=== PATIENT | female | born 1995 | race Caucasian/White ===

== ENCOUNTER → 2017-08-23 | Outpatient (REF) | payer OTHER ==
[~2017-08-23] MED LIST: ACET50TA PO; COLA100C5 PO; IBUP-1114 PO; MOM30SS PO; PRENTAB26 PO
== END ==
LOC: M SFHCLERA 11:28
PROVIDERS: ATTEND Nurse Practitioner Family
DX: R53.81 Other malaise (principal)

== ENCOUNTER 2017-11-04 20:40 | Emergency (ER) | payer OTHER ==
[2017-11-04 21:19] LABS: KETONE, URINE AUTO RFX NEGATIVE (NEGATIVE); LEUKOCYTE ESTERASE UR AUTO RFX 2+ (NEGATIVE); NITRITE, URINE AUTO RFX NEGATIVE (NEGATIVE); RBC, URINE AUTO RFX 3 /HPF (0-3); SPECIFIC GRAVITY UR AUTO RFX 1.005 (1.002-1.035); SQUAM EPITHELIAL CELL UR AURFX 5 /HPF (0-6); WBC, URINE AUTO RFX 13 /HPF (0-3)
[2017-11-04] MEDS: MORPHINE 2 MG/ML 1ML SYRINGE IV (21:45)
[2017-11-04] MEDS: ONDANSETRON 4MG/2ML VIAL (J2405) IV (21:45)
[2017-11-04 21:48] LABS: BASO % 0.8 % (0.0-1.0); EOS % 0.4 % (0.0-3.0); HEMATOCRIT 39.9 % (36.0-47.0); HEMOGLOBIN 13.6 g/dl (12.0-16.0); IMMATURE GRANULOCYTE % 0.2 % (0-0); LYMPH # 1.2 10^3/uL (1.5-6.5); LYMPH % 23.8 % (24.0-44.0); MEAN CORPUSCULAR HEMOGLOBIN 29.1 pg (27.0-33.0); MEAN CORPUSCULAR HGB CONC 34.1 g/dl (32.0-36.5); MEAN CORPUSCULAR VOLUME 85.4 fl (80.0-96.0); MONO # 0.4 10^3/uL (0.0-0.8); MONO % 7.2 % (0.0-5.0); NEUTROPHILS # 3.5 10^3/uL (1.8-7.7); NEUTROPHILS % 67.6 % (36.0-66.0); PLATELET COUNT, AUTOMATED 255 10^3/uL (150-450); RED BLOOD COUNT 4.67 10^6/uL (4.00-5.40); RED CELL DISTRIBUTION WIDTH 12.2 % (11.5-14.5); WHITE BLOOD COUNT 5.2 10^3/uL (4.0-10.0)
[2017-11-04 22:02] LABS: INR 1.05; PROTHROMBIN TIME 13.8 SECONDS (12.4-14.5)
[2017-11-04 22:14] LABS: CONTROL LINE HCG INT CTR LINE PRESENT; HCG, SERUM QUALITATIVE NEGATIVE (NEGATIVE)
[2017-11-04 22:25] LABS: ALBUMIN 4.3 GM/DL (3.2-5.2); ALBUMIN/GLOBULIN RATIO 1.23 (1.00-1.93); ALKALINE PHOSPHATASE 102 U/L (45-117); ALT/SGPT 21 U/L (12-78); ANION GAP 6 MEQ/L (8-16); AST/SGOT 24 U/L (7-37); BILIRUBIN,DIRECT 0.1 MG/DL (0.0-0.2); BILIRUBIN,TOTAL 0.5 MG/DL (0.2-1.0); BLOOD UREA NITROGEN 8 MG/DL (7-18); CALCIUM LEVEL 9.3 MG/DL (8.5-10.1); CARBON DIOXIDE LEVEL 26 MEQ/L (21-32); CHLORIDE LEVEL 106 MEQ/L (98-107); CREATININE FOR GFR 0.81 MG/DL (0.55-1.30); GLOMERULAR FILTRATION RATE > 60.0 (>60); GLUCOSE, FASTING 93 MG/DL (70-100); LIPASE 61 U/L (73-393); POTASSIUM SERUM 4.3 MEQ/L (3.5-5.1); SODIUM LEVEL 138 MEQ/L (136-145); TOTAL PROTEIN 7.8 GM/DL (6.4-8.2)
[2017-11-04] MEDS ORDERED: ISOVUE-370 76% 100ML VIAL (Q9967) As Ordered (22:43)
[2017-11-05 09:47] LABS: CHLAMYDIA DNA AMPLIFICATION NEGATIVE (NEGATIVE); GC DNA AMPLIFICATION NEGATIVE (NEGATIVE)
== END 2017-11-04 23:34 | disposition home or self-care (01) ==
LOC: M ED 20:40
DX: R10.9 Unspecified abdominal pain (principal); Z98.890 Other specified postprocedural states
CPT/HCPCS: J2405

== ENCOUNTER 2019-08-05 19:33 | Emergency (ER) | payer BC, OTHER ==
[~2019-08-05] VITALS: Ht 167.6 cm; Wt 79.1 kg
[~2019-08-05 19:33] MED LIST changes: -ACET50TA PO; +MAPA500T2 PO
[2019-08-05] MEDS ORDERED: LIDOCAINE 1% MDV 20ML VIAL IM ONE (21:15)
[2019-08-05] MEDS ORDERED: ADACEL/BOOSTRIX VACCINE (DIPHTH/PERTUSS/ACELL/TETANUS)0.5ML SYR (90715) IM ONE (21:15)
[2019-08-05] MEDS ORDERED: AUGM875T28 PO (21:21)
[2019-08-05 21:52] VITALS: BP 113/73
== END 2019-08-05 22:01 | disposition home or self-care (01) ==
LOC: M ED 19:33
DX: S01.511A Laceration without foreign body of lip, initial encounter (principal); W54.0XXA Bitten by dog, initial encounter; Y92.89 Other specified places as the place of occurrence of the external cause

== ENCOUNTER → 2020-04-26 | Outpatient (CLI) | payer BC ==
[~2020-04-26] MED LIST changes: +AUGM875T28 PO
[2020-06-04 12:21] LABS: CHOLESTEROL LEVEL 149 MG/DL (<200); CHOLESTEROL RISK RATIO 3.547 (<5); HDL CHOLESTEROL 42 MG/DL (>40); LDL CHOLESTEROL 80 MG/DL (<100); NON-HDL-C 107 MG/DL; TRIGLYCERIDES LEVEL 134 MG/DL (<150)
[2020-06-15 11:22] LABS: BASO % 0.7 % (0.0-1.0); EOS # 0.1 10^3/uL (0.0-0.5); HEMATOCRIT 40.4 % (36.0-47.0); LYMPH # 2.1 10^3/uL (1.5-5.0); LYMPH % 36.2 % (24.0-44.0); MEAN CORPUSCULAR HGB CONC 32.2 g/dl (32.0-36.5); MONO # 0.4 10^3/uL (0.0-0.8); MONO % 6.1 % (0.0-5.0); NEUTROPHILS # 3.2 10^3/uL (1.5-8.5); NEUTROPHILS % 55.8 % (36.0-66.0); PLATELET COUNT, AUTOMATED 343 10^3/uL (150-450); RED BLOOD COUNT 4.49 10^6/uL (4.00-5.40); WHITE BLOOD COUNT 5.8 10^3/uL (4.0-10.0)
== END ==
LOC: M LAB 07:27
PROVIDERS: ATTEND Family Medicine
DX: N91.1 Secondary amenorrhea (principal); E66.8 Other obesity; D50.9 Iron deficiency anemia, unspecified

== ENCOUNTER → 2020-06-19 | Outpatient (REF) | payer BC | LOC: M WUC 19:18 | PROVIDERS: ATTEND Physician Assistant | DX: J02.9 Acute pharyngitis, unspecified (principal) ==

== ENCOUNTER → 2020-11-22 | Outpatient (REF) | payer BC ==
[2020-11-22 14:05] LABS: HEMATOCRIT 33.8 % (36.0-47.0); HEMOGLOBIN 11.2 g/dl (12.0-15.5); MEAN CORPUSCULAR HEMOGLOBIN 29.4 pg (27.0-33.0); MEAN CORPUSCULAR HGB CONC 33.1 g/dl (32.0-36.5); MEAN CORPUSCULAR VOLUME 88.7 fl (80.0-96.0); PLATELET COUNT, AUTOMATED 321 10^3/uL (150-450); RED BLOOD COUNT 3.81 10^6/uL (4.00-5.40); WHITE BLOOD COUNT 6.1 10^3/uL (4.0-10.0)
[2020-11-22 14:51] LABS: HEPATITIS C VIRUS ABY INDEX < 0.0 INDEX (<0.8); HIV 1&2 SCREEN CENTAUR NEGATIVE (NEGATIVE)
== END ==
LOC: M PLALAB 08:54
PROVIDERS: ATTEND Advanced Practice Midwife
DX: Z3A.08 8 weeks gestation of pregnancy (principal)

== ENCOUNTER → 2020-12-20 | Outpatient (REF) | payer BC | LOC: M SFHCWAGY 13:21 | PROVIDERS: ATTEND Obstetrics & Gynecology | DX: Z34.91 Encounter for supervision of normal pregnancy, unspecified, first trimester (principal) ==

== ENCOUNTER → 2021-02-08 | Outpatient (CLI) | payer BC ==
--- NOTE | 2021-02-08 14:57 | REP ---
INDICATION: ANATOMY COMPARISON: None. TECHNIQUE: Transabdominal obstetrical ultrasound with color Doppler evaluation. FINDINGS: Examination demonstrates a single live intrauterine in cephalic presentation. motion is identified by technologist. Placenta is noted fundal and grade 0 without evidence for placenta previa or abruption. Amniotic fluid volume is normal. Cervix measures 3.7 cm in length and appears closed.. Gestational age by LMP 19 weeks 4 days with BLANKA 07/01/2021. Gestational age by current measurements 19 weeks 0 days with BLANKA 07/05/2021. FHR equals 142 beats per minute. Estimated weight 265 grams (16thpercentile). Anatomical assessment demonstrates normal structures including cranium, choroid plexus, cavum, cerebellum/posterior fossa, facial features, lungs, four-chamber heart/ventricular outflow tracts, diaphragm, stomach, cord insertion/three-vessel cord, kidneys/bladder, spine, and extremities. IMPRESSION: Single live intrauterine in cephalic presentation demonstrating appropriate estimated weight. Anatomical assessment is complete and normal. <Electronically signed by Billy Hernández > 02/08/21 [id number]
== END ==
LOC: M WHC 07:06
PROVIDERS: ATTEND Obstetrics & Gynecology
DX: Z36.89 Encounter for other specified antenatal screening (principal); Z3A.18 18 weeks gestation of pregnancy

== ENCOUNTER → 2021-04-18 | Outpatient (CLI) | payer BC ==
[2021-04-18 11:20] LABS: HEMATOCRIT 30.9 % (36.0-47.0); HEMOGLOBIN 10.3 g/dl (12.0-15.5); MEAN CORPUSCULAR HEMOGLOBIN 30.1 pg (27.0-33.0); MEAN CORPUSCULAR HGB CONC 33.3 g/dl (32.0-36.5); MEAN CORPUSCULAR VOLUME 90.4 fl (80.0-96.0); PLATELET COUNT, AUTOMATED 259 10^3/uL (150-450); RED BLOOD COUNT 3.42 10^6/uL (4.00-5.40); WHITE BLOOD COUNT 8.7 10^3/uL (4.0-10.0)
== END ==
LOC: M PLALAB 08:24
PROVIDERS: ATTEND Advanced Practice Midwife
DX: Z36.89 Encounter for other specified antenatal screening (principal); Z3A.24 24 weeks gestation of pregnancy

== ENCOUNTER 2021-05-30 15:50 | Outpatient (CLI) | payer BC ==
[~2021-05-30] VITALS: Ht 167.6 cm; Wt 84.9 kg
[2021-05-30 16:19] VITALS: BP 109/59
[2021-05-30] MEDS ORDERED: PRENTAB9 PO (17:16)
[2021-05-30] MEDS ORDERED: HOME MED LIST COMPLETE! XX SCH (17:20)
--- NOTE | 2021-05-30 17:52 | IPN ---
PROGRESS NOTE DATE: 05/30/2021 Pura is a 26-year-old 3, para 2-0-0-2 at 35-4/7 weeks gestation with an estimated date of confinement (EDC) of 06/30/2021 based on first-trimester ultrasound. She presents to labor and delivery today with a report that she dropped her water bottle at work, bent over, and had a large gush of fluid. She denies vaginal bleeding, painful contractions. The fetus has been active. [facility] was [facility] at [facility] in the first trimester. course was complicated by rubella equivocal and history of a hemorrhage. OBSTETRIC HISTORY: On , 40-week gestation, 7-pound 6-ounce male, vaginal delivery. She reports hemorrhage. #2, 03/08/2021, 37 weeks gestation, 6-pound 7-ounce female, vaginal, no complications. OBSTETRIC LABORATORY DATA: A positive, antibody screen negative, syphilis negative, gonorrhea and chlamydia negative, rubella equivocal. Hepatitis B negative, hepatitis C negative, HIV negative. Gestational diabetic screening normal at 93. Urine culture contaminated. GBS is unknown at this time. PAST MEDICAL HISTORY: Obesity. SURGERIES: 1. Corrective eye surgery. 2. [place] tooth extraction. FAMILY HISTORY: Hypertension. SOCIAL HISTORY: The patient is . Her is at bedside. She is a nonsmoker. She denies alcohol and drug use. No history of any sexual transmitted infections. She denies history of abuse, physical, sexual, and emotional. ALLERGIES: ZITHROMAX. CURRENT MEDICATIONS: vitamin. OBJECTIVE: Blood pressure 109/59. Alert and oriented times three. She does not appear uncomfortable. heart rate is 135 with moderate variability, positive accelerations, negative decelerations. There is an occasional contraction. Sterile speculum exam: Negative Valsalva. Negative pooling. Negative Nitrazine. Negative ferning. Sterile vaginal exam: Cervix is closed, 50% effaced, ballottable station. Her GBS culture and sensitivity was obtained. Bedside ultrasound reveals multiple pockets of fluid greater than 2.5 cm, approximately 8 cm of amniotic fluid. ASSESSMENT: Intrauterine at 35-4/7 weeks. heart rate category 1. Not ruptured, not in labor. PLAN: Discharge the patient home. She should keep her appointment that is scheduled tomorrow. I did review signs and symptoms of active labor, movement counts, and danger signs to report. I reviewed access to care. The patient and her have had their questions answered and are agreeable to discharge.
== END 2021-05-30 17:15 | disposition home or self-care (01) ==
LOC: M LDO 15:50
PROVIDERS: ATTEND Advanced Practice Midwife
DX: O26.893 Other specified pregnancy related conditions, third trimester (principal); N89.8 Other specified noninflammatory disorders of vagina; Z3A.35 35 weeks gestation of pregnancy; Z87.59 Personal history of other complications of pregnancy, childbirth and the puerperium

== ENCOUNTER 2021-06-04 18:19 | Outpatient (CLI) | payer BC ==
[~2021-06-04] VITALS: Ht 167.6 cm; Wt 83.2 kg
[~2021-06-04 18:19] MED LIST changes: +PRENTAB9 PO
[2021-06-04 18:35] VITALS: BP 121/67
[2021-06-04 19:54] VITALS: BP 133/79
[2021-06-04 21:19] VITALS: BP 119/75
[2021-06-04] MEDS ORDERED: LR 1,000 ML IV ONE (21:20)
[2021-06-04] MEDS ORDERED: BUTORPHANOL 2 MG/ML INJ (J0595) IV ONE (22:00)
[2021-06-04] MEDS ORDERED: PROMETHAZINE INJ 25 MG/ML VIAL (J2550) IV ONE (22:00)
[2021-06-04 22:12] VITALS: BP 110/55
[2021-06-04 22:41] VITALS: BP 103/55
[2021-06-04 23:37] VITALS: BP 96/58
--- NOTE | 2021-06-04 23:51 | IPNPDOC ---
Text Note Date of Service The patient was seen on 06/04/21. NOTE Subjective: Pura is a 26-year-old 3, para 2-0-0-2 at 36-2/7 weeks gestation with an estimated date of confinement (EDC) of 06/30/2021 based on first-trimester ultrasound. She presents to labor and delivery today with a report of painful contractions that are 8 minutes apart since noon. She reports they have gotten worse even after getting into the shower. [facility] was initiated at [facility] in the first trimester. course was complicated by rubella equivocal and history of a hemorrhage. She reports active movement. She denies leaking of fluid or vaginal bleeding. OBSTETRIC HISTORY: -: 40-week gestation, 7-pound 6-ounce male, vaginal delivery. She reports hemorrhage. -03/08/2016: 37 weeks gestation, 6-pound 7-ounce female, vaginal, no complications. OBSTETRIC LABORATORY DATA: A positive, GBS negative PAST MEDICAL HISTORY: Obesity. SURGERIES: 1. Corrective eye surgery. 2. [place] tooth extraction. FAMILY HISTORY: Hypertension. SOCIAL HISTORY: The patient is . Her is at bedside. She is a nonsmoker. She denies alcohol and drug use. No history of any sexual transmitted infections. She denies history of abuse, physical, sexual, or emotional. ALLERGIES: ZITHROMAX. CURRENT MEDICATIONS: vitamin. Objective: VS and labs: see below. FHR: 130, moderate variability, positive accelerations, no decelerations. [place]: Contractions every 2 to 4 minutes initially and after Stadol and Phenergan they are irregular and spaced. General: alert and oriented. Does appear to be uncomfortable at times as noted by grimacing. Respiratory: Regular rate and rhythm. Abdomen: soft and not tender with palpation SVE: 1/thick, anterior, soft, no show. No change in cervix after multiple hours. SSE done because there was a large puddle of fluid under patient right before she got up to bathroom. She thinks she urinated. SSE: cervix posterior, white thin discharge. No pooling of fluid. Nitrazine negative. Fern negative. Assessment: IUP at 36.2, contractions, not in active labor Plan: Patient given Stadol and Phenergan to help with discomfort. Contractions spaced and patient and feel comfortable returning home. Discharged to home. Appointment in office scheduled in 2 days. Encouraged to go to visit. Discharged to home with precautions with her . VS,Fishbone, I+O VS, Fishbone, I+O Vital Signs Date Time Temp Pulse Resp B/P (MAP) Pulse Ox O2 Delivery O2 Flow Rate FiO2 06/04/21 23:38 97.8 18 06/04/21 23:37 82 96/58 (71) Item Value Date Time Urine Color YELLOW 06/04/211952 Urine Appearance CLEAR 06/04/211952 Urine Specific [place] 1.014 06/04/211952 Urine Protein NEGATIVE mg/dL 06/04/211952 Urine pH 6.0 UNITS 06/04/211952 Urine Glucose (UA) NEGATIVE mg/dL 06/04/211952 Urine Ketones 1+ mg/dL H 06/04/211952 Urine Blood NEGATIVE 06/04/211952 Urine Nitrite NEGATIVE 06/04/211952 Urine Bilirubin NEGATIVE 06/04/211952 Urine Urobilinogen 0.2 mg/dL 06/04/211952 Urine Leukocyte Esterase NEGATIVE 06/04/211952 Urine WBC (Auto) 2 /HPF 06/04/211952 Urine RBC (Auto) 0 /HPF 06/04/211952 Urine Hyaline Casts (Auto) 0 /LPF 06/04/211952 Urine Bacteria (Auto) NEGATIVE 06/04/211952 Urine Squamous Epithelial Cells 1 /HPF 06/04/211952 Urine Mucus (Auto) SMALL 06/04/211952 DEE BEYER CNM Jun 04, 2021 23:51
== END 2021-06-04 23:50 | disposition home or self-care (01) ==
LOC: M LDO 18:19
PROVIDERS: ATTEND Advanced Practice Midwife
DX: O60.03 Preterm labor without delivery, third trimester (principal); Z3A.36 36 weeks gestation of pregnancy; Z88.1 Allergy status to other antibiotic agents
CPT/HCPCS: 59025; 81001; 96361; 96374; 96375; J0595

== ENCOUNTER 2021-06-12 15:59 | Outpatient (CLI) | payer BC ==
[~2021-06-12] VITALS: Ht 167.6 cm; Wt 85.5 kg
[2021-06-12 16:14] VITALS: BP 138/89
[2021-06-12] MEDS ORDERED: IRON65TA2 PO (16:17)
[2021-06-12 17:29] VITALS: BP 131/81
[2021-06-12 18:25] VITALS: BP 139/82
[2021-06-12 19:17] VITALS: BP 116/68
[2021-06-12 20:46] VITALS: BP 111/70
--- NOTE | 2021-06-12 22:14 | IPNPDOC ---
Text Note Date of Service The patient was seen on 06/12/21. NOTE Labor and Delivery Triage Note: S: [22yo at 33w5d] presents with c/o contractions x30mhcy and pelvic pressure. Denies vaginal bleeding or LOF. Reports active movement. O: vss, AF no ctx Cat 1 tracing Gen: well appearing, NAD Abd: gravid, soft, nttp cx: [long/ closed] [SSE: [GC culture collected]] A/P: [22yo ] not in PTL reassuring status -home with PTL precautions and FKCs. -f/u at nxt OB appt Swathi Gould MD VS,Nathan, I+O VSNathan, I+O Vital Signs Date Time Temp Pulse Resp B/P (MAP) Pulse Ox O2 Delivery O2 Flow Rate FiO2 06/12/21 19:17 97.5 68 16 116/68 (84) SWATHI GOULD MD. Jun 12, 2021 22:14
[2021-06-12 22:25] VITALS: BP 101/62
== END 2021-06-12 22:07 | disposition home or self-care (01) ==
LOC: M LDO 15:59
PROVIDERS: ATTEND Obstetrics & Gynecology
DX: O47.03 False labor before 37 completed weeks of gestation, third trimester (principal); Z3A.33 33 weeks gestation of pregnancy; Z88.1 Allergy status to other antibiotic agents

== ENCOUNTER 2021-06-18 16:24 | Outpatient (CLI) | payer BC ==
[~2021-06-18] VITALS: Ht 167.6 cm; Wt 84.9 kg
[~2021-06-18 16:24] MED LIST changes: +IRON65TA2 PO
[2021-06-18 16:43] VITALS: BP 110/66
[2021-06-18] MEDS ORDERED: HOME MED LIST COMPLETE! XX SCH (16:45)
[2021-06-18 19:15] VITALS: BP 118/67
--- NOTE | 2021-06-18 19:24 | IPNPDOC ---
Text Note Date of Service The patient was seen on 06/18/21. NOTE Subjective: Pura is a 26-year-old 3, para 2-0-0-2 at 38-2/7 weeks gestation with an estimated date of confinement (EDC) of 06/30/2021 based on first-trimester ultrasound. She presents to labor and delivery today with a report of painful contractions. She reports they have gotten worse. Her care was initiated at [facility] in the first trimester. course was complicated by rubella equivocal and history of a hemorrhage. She reports active movement. She denies leaking of fluid or vaginal bleeding. OBSTETRIC HISTORY: -: 40-week gestation, 7-pound 6-ounce male, vaginal delivery. She reports hemorrhage. -03/08/2016: 37 weeks gestation, 6-pound 7-ounce female, vaginal, no compl ications. OBSTETRIC LABORATORY DATA: A positive, GBS negative, rubella equivocal, PAST MEDICAL HISTORY: Obesity. SURGERIES: 1. Corrective eye surgery. 2. [place] tooth extraction. FAMILY HISTORY: Hypertension. SOCIAL HISTORY: The patient is . Her is at bedside. She is a nonsmoker. She denies alcohol and drug use. No history of any sexual transmitted infections. She denies history of abuse, physical, sexual, or emotional. ALLERGIES: ZITHROMAX. CURRENT MEDICATIONS: vitamin. Objective: VS and labs: see below. FHR: 130, moderate variability, positive accelerations, no decelerations. [place]: Contractions irregular. General: alert and oriented. Does appear to be uncomfortable at times as noted by grimacing. Respiratory: Regular rate and rhythm. Abdomen: soft and not tender with palpation SVE: 50/-2, soft, scant show. No change in cervix after multiple hours. Assessment: IUP at 38.2, not in active labor Plan: Patient discharged to home. Reviewed option for elective IOL due to multiple hospital visits over the last 2 weeks. Patient desires induction. Reviewed process. Patient scheduled for 06/24/21. Reviewed access to care, kick count, labor signs and danger signs to report. VS,Fishbone, I+O VS, Fishbone, I+O Vital Signs Date Time Temp Pulse Resp B/P (MAP) Pulse Ox O2 Delivery O2 Flow Rate FiO2 06/18/21 19:16 97.7 18 06/18/21 19:15 77 118/67 (84) 06/18/21 16:43 Room Air DEE BEYER CNM Jun 18, 2021 19:24
== END 2021-06-18 19:25 | disposition home or self-care (01) ==
LOC: M LDO 16:24
PROVIDERS: ATTEND Advanced Practice Midwife
DX: O47.1 False labor at or after 37 completed weeks of gestation (principal); O98.513 Other viral diseases complicating pregnancy, third trimester; Z87.59 Personal history of other complications of pregnancy, childbirth and the puerperium; Z3A.38 38 weeks gestation of pregnancy; Z88.1 Allergy status to other antibiotic agents

== ENCOUNTER 2021-06-26 14:31 | Outpatient (CLI) | payer BC ==
[~2021-06-26] VITALS: Ht 167.6 cm; Wt 85.2 kg
[2021-06-26 14:45] VITALS: BP 117/65
[2021-06-26] MEDS ORDERED: TUMS750C5 PO (14:50)
--- NOTE | 2021-06-26 15:52 | IPNPDOC ---
Text Note Date of Service The patient was seen on 06/26/21. NOTE Labor and Delivery Triage Note: S: 26yo at 39w2d presents with c/o LOF. Denies vaginal bleeding. Reports active movement. O: vss, AF irreg ctx Cat 1 tracing Gen: well appearing, NAD Abd: gravid, soft, nttp SSE: Nitrazine, pooling, ferning all negative A/P: 26-year-old G3, P2 at 39 weeks 2 days with contractions not in active labor or SROM reassuring status -home with Labor precautions and FKCs. -Social induction of labor scheduled Swathi Gould MD VS,Nathan, I+O VS, Nathan, I+O Vital Signs Date Time Temp Pulse Resp B/P (MAP) Pulse Ox O2 Delivery O2 Flow Rate FiO2 06/26/21 14:51 90 98 Room Air 06/26/21 14:45 97.8 16 117/65 (82) SWATHI GOULD MD. Jun 26, 2021 15:52
== END 2021-06-26 16:00 | disposition home or self-care (01) ==
LOC: M LDO 14:31
PROVIDERS: ATTEND Obstetrics & Gynecology
DX: O47.1 False labor at or after 37 completed weeks of gestation (principal); Z3A.39 39 weeks gestation of pregnancy; Z88.1 Allergy status to other antibiotic agents

== ENCOUNTER 2021-06-27 14:24 | Inpatient (IN) | payer BC ==
[2021-06-27] VITALS (8 sets, daily range): BP systolic 111–137; BP diastolic 66–81
[~2021-06-27] VITALS: Ht 167.6 cm; Wt 85.5 kg
[~2021-06-27 14:24] MED LIST changes: +TUMS750C5 PO
[2021-06-27] MEDS ORDERED: HOME MED LIST COMPLETE! XX SCH (15:15)
[2021-06-27] MEDS ORDERED: METHYLERGONOVINE MALEATE 0.2 MG/ML VIAL (J2210) IM PRN (15:45)
[2021-06-27] MEDS ORDERED: OXYTOCIN INJ 10 UNITS/ML VIAL (J2590) IM PRN (15:45)
[2021-06-27] MEDS ORDERED: LIDOCAINE 1% MDV 20ML VIAL INFIL PRN (15:45)
[2021-06-27] MEDS ORDERED: OXYTOCIN DRIP 30 UNITS in IV 1 EA IV PRN ×4 (15:45)
[2021-06-27] MEDS ORDERED: CARBOPROST TROMETHAMINE 250 MCG/ML AMP IM PRN (15:45)
[2021-06-27] MEDS ORDERED: miSOPROStol 50MCG 1/2 TABLET PO ONE (15:45)
[2021-06-27] MEDS ORDERED: TRANEXAMIC ACID INJection 1,000 MG in NS 100 ML IV PRN (15:45)
[2021-06-27 16:30] LABS: HEMATOCRIT 28.9 % (36.0-47.0); HEMOGLOBIN 9.8 g/dl (12.0-15.5); MEAN CORPUSCULAR HEMOGLOBIN 30.5 pg (27.0-33.0); MEAN CORPUSCULAR HGB CONC 33.9 g/dl (32.0-36.5); PLATELET COUNT, AUTOMATED 232 10^3/uL (150-450); RED BLOOD COUNT 3.21 10^6/uL (4.00-5.40); WHITE BLOOD COUNT 7.9 10^3/uL (4.0-10.0)
--- NOTE | 2021-06-27 17:12 | HPE ---
HISTORY AND PHYSICAL DATE OF ADMISSION: 06/27/2021 HISTORY OF PRESENT ILLNESS: Pura is a 26-year-old 3 para 2-0-0-2 now at 39 and 4/7th weeks gestation with an EDC of 06/30/2021 based on first trimester ultrasound. She presents to Labor and Delivery today for a social induction of labor. She denies regular painful contractions, vaginal bleeding and leakage of fluid. The fetus has been active. [facility] first trimester. The course was complicated by obesity. OBSTETRIC HISTORY: July 16, 2014: 40 week gestation, 7 pound, 6 ounce male, vaginal delivery, complicated by a hemorrhage; March 08, 2016, 37 weeks, 6 pounds, 7 ounce female, vaginal delivery, no complications. OBSTETRIC LABS: A positive, antibody screen negative, syphilis negative, gonorrhea and chlamydia negative, hepatitis B negative, hepatitis C negative, HIV negative, rubella equivocal, gestational diabetic screening, normal at 93. Urine culture contaminated and GBS is negative. PAST MEDICAL HISTORY: Obesity. PAST SURGICAL HISTORY: Lasik, wisdom tooth extraction. FAMILY HISTORY: Hypertension. SOCIAL HISTORY: The patient is . Her is at bedside. She is a nonsmoker. She denies alcohol and drug use. No history of sexually transmitted infections. She denies a history of abuse, physical, sexual and emotional. She is employed as a medical billing and coding specialist. ALLERGIES: Zithromax which causes a rash. CURRENT MEDICATIONS: vitamin. OBJECTIVE: Temperature is 98.3, pulse is 86, respirations are 18, BP is 137/81. She is alert and oriented x3. She is in no apparent distress. The heart rate is 140 with moderate variability, positive accelerations, negative decelerations, contractions every 4 to 7 minutes, they palpate mild, her abdomen is gravid, cephalic presentation with an estimated weight of 6.5 to 7 pounds. Sterile vaginal exam: 1.5 cm dilated, 50% effaced, -3 station, posterior and soft, no show with the exam. ASSESSMENT: Intrauterine at 39 and 4/7th weeks, heart rate Category 1, term . PLAN: Admit the patient to Labor and Delivery, routine laboratories, regular diet at this time, out of bed ad beth, IV saline lock for IV access. I plan to start Misoprostol 50 mcg p.o. for cervical ripening, will likely start IV Pitocin for labor induction, may consider Montano catheter for cervical ripening if needed. May consider assisted rupture of membranes to augment her labor once labor is active. Patient is requesting an epidural when she is uncomfortable with her labor. IV fluid bolus will be planned prior to that. I did review risks, benefits and alternatives with the patient and her , all of their questions have been answered, she has been verbally consented for emergency surgery and blood products if they are necessary. I do anticipate labor and vaginal delivery.
[2021-06-27] MEDS: miSOPROStol 50MCG 1/2 TABLET PO SCH ×2 (20:19→23:05)
[2021-06-28] VITALS (34 sets, daily range): BP systolic 98–138; BP diastolic 55–83
[2021-06-28] MEDS ORDERED: OXYTOCIN DRIP 30 UNITS in IV 1 EA IV SCH (00:25)
[2021-06-28] MEDS: LR 1,000 ML IV SCH ×2 (00:37→03:43)
[2021-06-28] MEDS ORDERED: FENTANYL 2MCG/ML ROPIVACAINE 0.2% IN 0.9% NACL 100ML IVBAG As Ordered ONE (03:01)
[2021-06-28] MEDS ORDERED: EPIDURAL COMMENT XX SCH (03:40)
[2021-06-28] MEDS ORDERED: ONDANSETRON 4MG/2ML VIAL IV PRN (03:40)
[2021-06-28] MEDS ORDERED: REFRIGERATOR IV KEYS XX PRN (03:40)
[2021-06-28] MEDS ORDERED: FENTANYL/ROPIVACAINE/NACL BAG 100 ML EPIDURAL SCH (03:40)
[2021-06-28] MEDS ORDERED: LACTATED RINGER'S 1000 ML IV PRN (03:40)
[2021-06-28] MEDS ORDERED: NALOXONE INJ 0.4MG/1ML VIAL (J2310 PER 1MG) IV PRN (03:40)
[2021-06-28] MEDS ORDERED: EPIDURAL/PCA KEYS XX PRN (03:40)
[2021-06-28] MEDS ORDERED: diphenhydrAMINE 50MG/ML VIAL (J1200) IV PRN (03:40)
[2021-06-28] MEDS: ePHEDrine SULFATE 25 MG/5 ML(5MG/ML) SYRINGE IV PRN ×3 (04:27→04:34)
[2021-06-28] MEDS ORDERED: DOCUSATE SODIUM 100MG CAPSULE PO PRN (08:10)
[2021-06-28] MEDS ORDERED: ACETAMINOPHEN TAB 650MG DOSE (2X325MG) PO PRN (08:10)
[2021-06-28] MEDS ORDERED: IBUPROFEN 600MG TAB PO PRN (08:10)
[2021-06-28] MEDS ORDERED: METHYLERGONOVINE MALEATE 0.2 MG TAB PO PRN (08:10)
[2021-06-28] MEDS ORDERED: IBUPROFEN 800 MG TAB PO PRN (08:10)
[2021-06-28] MEDS ORDERED: ACETAMINOPHEN 500 MG TAB PO PRN (08:10)
[2021-06-28] MEDS ORDERED: DIBUCAINE 1% OINTMENT 30GM TOP PRN (08:10)
[2021-06-28] MEDS ORDERED: RHOGAM 300 MCG (1500 IU) INJ (J2790) IM SCH (08:10)
[2021-06-28] MEDS: PRENATAL VITAMINS CHEWABLE TABLET PO SCH (09:09)
--- NOTE | 2021-06-28 09:28 | DN ---
DELIVERY NOTE DATE OF DELIVERY: 06/28/2021 TIME OF : DESCRIPTION OF DELIVERY: Pura is a 26-year-old 3, para 3-0-0-3 now who was admitted to Labor and Delivery for induction of labor due to social reasons. She had two doses of misoprostol and IV Pitocin, and labor did ensue. She utilized an epidural for her labor coping. She reached complete dilation at 0731. She pushed to a normal spontaneous vaginal delivery of a live female infant in direct OP position with restitution to ROT position at 0746. The shoulders delivered spontaneously, and the corpus immediately followed. The female's mouth and nares were bulb suction, and she was placed on the maternal abdomen crying and active. The cord was clamped x2 once pulsations ceased and cut by the father of the baby under my direction. Spontaneous expulsion with intact placenta with three vessel by Schultze mechanism was at 0750. Uterine hemostasis achieved with IV Pitocin rapid infusion, uterine fundal massage, and Methergine 2.2 mg IM. Estimated blood loss 350 mL. Perineum and vagina inspected. Noted to have a very small first degree perineal laceration. The laceration was repaired with 3-0 Vicryl in the usual fashion. The weighed 2730 grams, 6 pounds 0 ounces. Apgars were 9 and 10. Mom is going to formula feed her daughter, and the family has named her Zeny. At the close of delivery, lap counts, needle counts, and instrument counts were correct and verified.
[2021-06-28] MEDS: MEASLES,MUMPS,RUBELLA VACCINE INJ (MMR-II) (90707) SC SCH (15:39)
[2021-06-29 05:49] VITALS: BP 110/62
[2021-06-29] MEDS: PRENATAL VITAMINS CHEWABLE TABLET PO SCH (08:24)
--- NOTE | 2021-06-29 10:47 | IPNPDOC ---
Progress Note Date of Service: Jun 29, 2021 Day#: 1 Progress Note SUBJECT: Patient is a who had an elective IOL at 39+ weeks gestation. She had an uncomplicated vaginal delivery. NB is in NICU for low blood sugars. She reports she is not having any pain. Reports she is voiding, ambulating and tolerating a regular diet. OBJECTIVE: VITAL SIGNS: See below. Alert and oriented times three. Respiratory: regular rate and rhythm. No use of accessory muscles. Abdomen: Fundus firm at U-1. Soft, NTTP. Minimal lochia. ASSESSMENT: Day 1 PLAN: 1. Patient desires to stay due to NB being in NICU 2. Continue supportive nursing care. 3. Discharge to home tomorrow VS, I&O, 24H, Fishbone Vital Signs/I&O Vital Signs Date Time Temp Pulse Resp B/P (MAP) Pulse Ox O2 Delivery O2 Flow Rate FiO2 06/29/21 05:49 97.4 69 17 110/62 (78) 97 Room Air I&O- Last 24 Hours up to 6 AM 06/29/21 06:00 Intake Total 1110.5 ml Output Total 1250 ml Balance -139.5 ml DEE BEYER CNM Jun 29, 2021 10:47
[2021-06-29 18:04] VITALS: BP 125/75
[2021-06-30 06:02] VITALS: BP 100/57
[2021-06-30] MEDS: PRENATAL VITAMINS CHEWABLE TABLET PO SCH (10:25)
[2021-06-30] MEDS: MEASLES,MUMPS,RUBELLA VACCINE INJ (MMR-II) (90707) SC SCH (10:53)
--- NOTE | 2021-06-30 16:19 | IPNPDOC ---
Progress Note Date of Service: Jun 30, 2021 Day#: 2 Progress Note SUBJECT: [Prua] is a [26]-year-old ] status post uncomplicated spontaneous vag inal delivery , doing well day # [2]. She has been ambulating, voiding spontaneously without issue and tolerating regular diet. Breast feeding without issue. Reports lochia is [like a normal period]. Patient is ambulating well. [Reports some cramping with . Denies any pain. Voiding and stooling without difficulty]. OBJECTIVE: VITAL SIGNS: Within normal limits, afebrile. Alert and oriented times three. Breath sounds clear to auscultation. Heart rate: Regular rate and rhythm, no murmurs, rubs or gallops. Abdomen: Fundus firm at U-2. Soft, NTTP. [Minimal] lochia. ASSESSMENT: [Pura] is a [26]-year-old status post uncomplicated spontaneous vaginal delivery. Vitals within normal limits, afebrile, hemodynamically stable with no evidence of infection. PLAN: 1. Discharge to home today. 2. Tylenol and Motrin for pain. 3. Encourage breast feeding and ambulation. 4. Routine PP visit in 6 weeks in clinic. 5. Discussed return precautions at length. VS, I&O, 24H, Fishbone Vital Signs/I&O Vital Signs Date Time Temp Pulse Resp B/P (MAP) Pulse Ox O2 Delivery O2 Flow Rate FiO2 06/30/21 06:02 97.7 78 18 100/57 (71) Room Air 06/29/21 18:04 100 I&O- Last 24 Hours up to 6 AM 06/30/21 06:00 Intake Total 400 ml Balance 400 ml Maninder Stovall DO Jun 30, 2021 16:18
== END 2021-06-30 11:10 | disposition home or self-care (01) | DRG 560 ==
LOC: M LDI 14:24 → M OBS 06-28 11:00
PROVIDERS: ADMIT Advanced Practice Midwife; ATTEND Advanced Practice Midwife
PROC: 3E0P7GC Introduction of Other Therapeutic Substance into Female Reproductive, Via Natural or Artificial Opening (ICD-10-PCS; 2021-06-27)
PROC: 10E0XZZ Delivery of Products of Conception, External Approach (ICD-10-PCS; principal; 2021-06-28)
DX: O70.0 First degree perineal laceration during delivery (principal); Z37.0 Single live birth; Z3A.39 39 weeks gestation of pregnancy

== ENCOUNTER → 2024-01-29 | Outpatient (CLI) | payer BC, OTHER | LOC: M RAD 07:20 | PROVIDERS: ATTEND Advanced Practice Midwife | DX: Z34.92 Encounter for supervision of normal pregnancy, unspecified, second trimester (principal) ==

== ENCOUNTER → 2024-03-19 | Outpatient (CLI) | payer OTHER ==
[2024-03-19 13:09] LABS: HEMATOCRIT 30.6 % (36.0-47.0); HEMOGLOBIN 10.1 g/dl (12.0-15.5); MEAN CORPUSCULAR HEMOGLOBIN 29.4 pg (27.0-33.0); MEAN CORPUSCULAR VOLUME 89.2 fl (80.0-96.0); PLATELET COUNT, AUTOMATED 306 10^3/uL (150-450); RED BLOOD COUNT 3.43 10^6/uL (4.00-5.40); WHITE BLOOD COUNT 9.8 10^3/uL (4.0-10.0)
[2024-03-19 13:14] LABS: ALBUMIN 2.6 G/DL (3.2-5.2); ALKALINE PHOSPHATASE 92 U/L (46-116); ALT/SGPT 12 U/L (7.0-40); AST/SGOT 10 U/L (<34); BILIRUBIN,DIRECT < 0.1 MG/DL (<0.4); BILIRUBIN,TOTAL 0.2 MG/DL (0.3-1.2); GLUCOSE CHALLENGE TEST 1 HOUR 130 MG/DL (LESS THAN 140); TOTAL PROTEIN 5.8 G/DL (5.7-8.2)
[2024-03-19 14:30] LABS: GC DNA AMPLIFICATION NEGATIVE (NEGATIVE)
== END ==
LOC: M PLALAB 08:54
PROVIDERS: ATTEND Advanced Practice Midwife
DX: Z34.92 Encounter for supervision of normal pregnancy, unspecified, second trimester (principal); R10.11 Right upper quadrant pain

== ENCOUNTER → 2024-03-26 | Outpatient (CLI) | payer OTHER | LOC: M WHC 03-16 08:05 | PROVIDERS: ATTEND Advanced Practice Midwife | DX: Z34.92 Encounter for supervision of normal pregnancy, unspecified, second trimester (principal) ==

== ENCOUNTER 2024-03-30 14:45 | Outpatient (CLI) | payer OTHER ==
[~2024-03-30] VITALS: Ht 165.1 cm; Wt 87.5 kg
[2024-03-30 15:22] VITALS: BP 127/67
[2024-03-30] MEDS: LACTATED RINGER'S 1000 ML IV STA (15:48)
[2024-03-30 15:53] LABS: BASO % 0.4 % (0.0-1.0); EOS % 0.1 % (0.0-3.0); HEMATOCRIT 28.5 % (36.0-47.0); HEMOGLOBIN 9.8 g/dl (12.0-15.5); LYMPH # 0.6 10^3/uL (1.5-5.0); LYMPH % 6.8 % (24.0-44.0); MEAN CORPUSCULAR HGB CONC 34.4 g/dl (32.0-36.5); MEAN CORPUSCULAR VOLUME 87.2 fl (80.0-96.0); MONO # 0.4 10^3/uL (0.0-0.8); NEUTROPHILS # 7.4 10^3/uL (1.5-8.5); NEUTROPHILS % 87.1 % (36.0-66.0); PLATELET COUNT, AUTOMATED 246 10^3/uL (150-450); RED BLOOD COUNT 3.27 10^6/uL (4.00-5.40); WHITE BLOOD COUNT 8.4 10^3/uL (4.0-10.0)
[2024-03-30 16:14] LABS: LIPASE 19 U/L (12-53)
[2024-03-30 16:17] LABS: ALBUMIN 2.7 G/DL (3.2-5.2); ALKALINE PHOSPHATASE 103 U/L (46-116); ALT/SGPT 16 U/L (7.0-40); AST/SGOT 25 U/L (<34); BILIRUBIN,TOTAL 0.4 MG/DL (0.3-1.2); BLOOD UREA NITROGEN 5 MG/DL (9-23); CALCIUM LEVEL 8.5 MG/DL (8.5-10.1); CARBON DIOXIDE LEVEL 19 MMOL/L (20-31); CHLORIDE LEVEL 105 MMOL/L (98-107); CREATININE FOR GFR 0.49 MG/DL (0.55-1.30); GLOMERULAR FILTRATION RATE > 60.0 (>60); GLUCOSE, FASTING 83 MG/DL (60-100); POTASSIUM SERUM 4.1 MMOL/L (3.5-5.1); SODIUM LEVEL 133 MMOL/L (136-145); TOTAL PROTEIN 5.9 G/DL (5.7-8.2)
[2024-03-30] MEDS ORDERED: OMEP10CASR PO (16:23)
[2024-03-30] MEDS ORDERED: HOME MED LIST COMPLETE! XX SCH (16:25)
[2024-03-30] MEDS: KETOROLAC 30 MG/ML 1ML VIAL IV ONE (16:51)
[2024-03-30] MEDS: LR 1,000 ML IV SCH (16:51)
[2024-03-30] MEDS: ONDANSETRON 4MG 2ML VIAL IV PRN (16:51)
[2024-03-30] MEDS: MORPHINE 4 MG/ML 1ML VIAL IV ONE (19:08)
[2024-03-30 19:12] VITALS: BP 101/50
[2024-03-30 21:20] VITALS: BP 92/55
[2024-03-30] MEDS: KCL 20MEQ IN D5/0.45NS 1000ML 1,000 ML IV SCH (22:51)
[2024-03-30] MEDS: LIDOCAINE 5% (LIDODERM) PATCH TD ONE (22:52)
[2024-03-30] MEDS: OMEPRAZOLE 20MG CAP PO ONE (23:00)
[2024-03-30] MEDS: PROMETHAZINE 25MG/ML 1ML VIAL IV ONE (23:01)
[2024-03-30] MEDS: BUTORPHANOL 2 MG/ML 1ML VIAL IV ONE (23:02)
[2024-03-30 23:23] VITALS: BP 105/57
[2024-03-31 02:29] VITALS: BP 103/52
[2024-03-31 06:16] VITALS: BP 99/56
[2024-03-31 06:33] LABS: BASO % 0.2 % (0.0-1.0); HEMATOCRIT 25.3 % (36.0-47.0); HEMOGLOBIN 8.4 g/dl (12.0-15.5); LYMPH # 0.6 10^3/uL (1.5-5.0); LYMPH % 10.5 % (24.0-44.0); MEAN CORPUSCULAR HEMOGLOBIN 29.6 pg (27.0-33.0); MEAN CORPUSCULAR HGB CONC 33.2 g/dl (32.0-36.5); MEAN CORPUSCULAR VOLUME 89.1 fl (80.0-96.0); MONO # 0.4 10^3/uL (0.0-0.8); MONO % 7.4 % (2.0-8.0); NEUTROPHILS # 4.6 10^3/uL (1.5-8.5); NEUTROPHILS % 81.4 % (36.0-66.0); PLATELET COUNT, AUTOMATED 199 10^3/uL (150-450); RED BLOOD COUNT 2.84 10^6/uL (4.00-5.40); WHITE BLOOD COUNT 5.7 10^3/uL (4.0-10.0)
[2024-03-31 07:10] LABS: ALBUMIN 2.2 G/DL (3.2-5.2); ALKALINE PHOSPHATASE 89 U/L (46-116); ALT/SGPT 14 U/L (7.0-40); AST/SGOT 14 U/L (<34); BILIRUBIN,TOTAL 0.3 MG/DL (0.3-1.2); BLOOD UREA NITROGEN < 5 MG/DL (9-23); CALCIUM LEVEL 7.9 MG/DL (8.5-10.1); CARBON DIOXIDE LEVEL 22 MMOL/L (20-31); CHLORIDE LEVEL 111 MMOL/L (98-107); CREATININE FOR GFR 0.57 MG/DL (0.55-1.30); GLOMERULAR FILTRATION RATE > 60.0 (>60); GLUCOSE, FASTING 104 MG/DL (60-100); SODIUM LEVEL 138 MMOL/L (136-145); TOTAL PROTEIN 4.9 G/DL (5.7-8.2)
[2024-03-31 07:39] VITALS: BP 97/51
[2024-03-31 14:14] VITALS: BP 93/55
[2024-03-31] MEDS: ursodioL 300MG CAP PO SCH (16:01)
== END 2024-03-31 20:00 | disposition home or self-care (01) ==
LOC: M LDO 14:45
PROVIDERS: ATTEND Specialist
DX: O26.613 Liver and biliary tract disorders in pregnancy, third trimester (principal); Z3A.28 28 weeks gestation of pregnancy; Z88.1 Allergy status to other antibiotic agents
CPT/HCPCS: 36415; 59025; 74176; 76705; 80053; 81001; 83690; 85025; 96360; 96361; 96374; 96375; 96376; G0463; J0595; J1885; J2405; J2550

== ENCOUNTER → 2024-05-17 | Outpatient (REF) | payer OTHER ==
[~2024-05-17] MED LIST changes: +OMEP10CASR PO; +URSO300C3 PO
== END ==
LOC: M SFHCWAGY 12:39
PROVIDERS: ATTEND Advanced Practice Midwife
DX: Z34.83 Encounter for supervision of other normal pregnancy, third trimester (principal)

== ENCOUNTER 2024-05-19 09:46 | Inpatient (IN) | payer OTHER ==
[~2024-05-19] VITALS: Ht 165.1 cm; Wt 88.1 kg
[2024-05-19] VITALS (31 sets, daily range): BP systolic 92–123; BP diastolic 53–73
[~2024-05-19 09:46] MED LIST changes: -URSO300C3 PO
[2024-05-19] MEDS ORDERED: URSO300C3 PO (10:18)
[2024-05-19] MEDS ORDERED: HOME MED LIST COMPLETE! XX SCH (10:25)
[2024-05-19 13:14] LABS: HEMATOCRIT 31.6 % (36.0-47.0); HEMOGLOBIN 10.7 g/dl (12.0-15.5); MEAN CORPUSCULAR HGB CONC 33.9 g/dl (32.0-36.5); MEAN CORPUSCULAR VOLUME 88.5 fl (80.0-96.0); PLATELET COUNT, AUTOMATED 261 10^3/uL (150-450); RED BLOOD COUNT 3.57 10^6/uL (4.00-5.40); WHITE BLOOD COUNT 9.2 10^3/uL (4.0-10.0)
[2024-05-19] MEDS ORDERED: TRANEXAMIC ACID INJection 1,000 MG in NS 100 ML IV PRN (13:35)
[2024-05-19] MEDS ORDERED: OXYTOCIN DRIP 30 UNITS in IV 1 EA IV PRN (13:35)
[2024-05-19] MEDS ORDERED: CARBOPROST TROMETHAMINE 250 MCG/ML AMP IM PRN (13:35)
[2024-05-19] MEDS ORDERED: OXYTOCIN INJ 10UNITS/ML 1ML VIAL IM PRN (13:35)
[2024-05-19] MEDS ORDERED: LIDOCAINE 1% MDV 20ML VIAL INFIL PRN (13:35)
[2024-05-19] MEDS ORDERED: METHYLERGONOVINE MALEATE 0.2MG/ML 1ML VIAL IM PRN (13:35)
[2024-05-19] MEDS: BETAMETHASONE SOLUSPAN 6MG/ML 5ML VIAL IM SCH (13:54)
[2024-05-19] MEDS: LR 1,000 ML IV SCH (13:54)
[2024-05-19] MEDS: OXYTOCIN DRIP 30 UNITS in IV 1 EA IV SCH (13:58)
[2024-05-19 15:07] LABS: HEPATITIS C VIRUS ABY INDEX < 0.02 INDEX (<0.8)
[2024-05-19] MEDS: ursodioL 300MG CAP PO SCH (15:36)
[2024-05-19] MEDS: CALCIUM CARBONATE 500 MG CHEW U/D PO PRN (17:35)
[2024-05-19] MEDS ORDERED: diphenhydrAMINE 50MG/ML VIAL IV PRN (20:05)
[2024-05-19] MEDS ORDERED: NALOXONE INJ 0.4MG/1ML VIAL IV PRN (20:05)
[2024-05-19] MEDS ORDERED: LR 500 ML IV PRN (20:05)
[2024-05-19] MEDS ORDERED: EPIDURAL/PCA KEYS XX PRN (20:05)
[2024-05-19] MEDS: FENTANYL/ROPIVACAINE/NACL BAG 100 ML EPIDURAL SCH (21:05)
[2024-05-20] VITALS (49 sets, daily range): BP systolic 76–116; BP diastolic 37–70; O2SAT 97–99
[2024-05-20] MEDS: ONDANSETRON 4MG 2ML VIAL IV PRN (00:42)
[2024-05-20] MEDS: ePHEDrine SULFATE 25 MG/5 ML(5MG/ML) SYRINGE IVP PRN (01:01)
[2024-05-20] MEDS: BETAMETHASONE SOLUSPAN 6MG/ML 5ML VIAL IM SCH (02:06)
[2024-05-20] MEDS: ACETAMINOPHEN 500 MG TAB PO PRN (08:24)
[2024-05-20] MEDS ORDERED: DOCUSATE SODIUM 100MG CAPSULE PO PRN (09:55)
[2024-05-20] MEDS ORDERED: ACETAMINOPHEN 500 MG TAB PO PRN (09:55)
[2024-05-20] MEDS ORDERED: DIBUCAINE 1% OINTMENT 30GM TOP PRN (09:55)
[2024-05-20] MEDS ORDERED: METHYLERGONOVINE MALEATE 0.2 MG TAB PO PRN (09:55)
[2024-05-20] MEDS ORDERED: IBUPROFEN 600MG TAB PO PRN (09:55)
[2024-05-20] MEDS ORDERED: RHO(D) IMMUNE GLOBULIN/MALTOSE 500MCG(2500IU)/2.2ML VIAL (WINRHO) IM SCH (09:55)
[2024-05-20] MEDS: OXYTOCIN DRIP 30 UNITS in IV 1 EA IV SCH (10:53)
[2024-05-21 06:02] VITALS: BP 97/65; O2SAT 97
[2024-05-21 06:24] LABS: MEAN CORPUSCULAR HEMOGLOBIN 29.4 pg (27.0-33.0); MEAN CORPUSCULAR HGB CONC 33.1 g/dl (32.0-36.5); MEAN CORPUSCULAR VOLUME 88.8 fl (80.0-96.0); PLATELET COUNT, AUTOMATED 235 10^3/uL (150-450); RED BLOOD COUNT 2.69 10^6/uL (4.00-5.40); WHITE BLOOD COUNT 12.3 10^3/uL (4.0-10.0)
[2024-05-21 06:40] LABS: HEMATOCRIT 23.9 % (36.0-47.0); HEMOGLOBIN 7.9 g/dl (12.0-15.5)
[2024-05-21] MEDS: PRENATAL VITAMINS CHEWABLE TABLET PO SCH (09:00)
[2024-05-22] MEDS ORDERED: MEASLES,MUMPS,RUBELLA VACCINE INJ (MMR-II) SC.IMMUN ONE (09:00)
== END 2024-05-21 14:02 | disposition home or self-care (01) | DRG 807 ==
LOC: M LDO 09:46 → M LDI 12:32 → M OBS 05-20 13:43
PROVIDERS: ADMIT Advanced Practice Midwife; ATTEND Obstetrics & Gynecology
PROC: 10E0XZZ Delivery of Products of Conception, External Approach (ICD-10-PCS; principal; 2024-05-20)
DX: O42.013 Preterm premature rupture of membranes, onset of labor within 24 hours of rupture, third trimester (principal); Z37.0 Single live birth; Z3A.35 35 weeks gestation of pregnancy; O99.02 Anemia complicating childbirth; D64.9 Anemia, unspecified; Z88.1 Allergy status to other antibiotic agents; Z79.899 Other long term (current) drug therapy; O69.81X0 Labor and delivery complicated by cord around neck, without compression, not applicable or unspecified

== ENCOUNTER 2024-06-19 21:05 | Inpatient (IN) | payer OTHER ==
[~2024-06-19] VITALS: Ht 162.6 cm; Wt 82.5 kg
[~2024-06-19 21:05] MED LIST changes: +URSO300C3 PO
[2024-06-19 21:55] LABS: BASO # 0.1 10^3/uL (0.0-0.2); BASO % 0.6 % (0.0-1.0); EOS # 0.1 10^3/uL (0.0-0.5); EOS % 1.7 % (0.0-3.0); HEMATOCRIT 36.2 % (36.0-47.0); HEMOGLOBIN 11.7 g/dl (12.0-15.5); LYMPH # 3.3 10^3/uL (1.5-5.0); LYMPH % 40.1 % (24.0-44.0); MEAN CORPUSCULAR HEMOGLOBIN 28.7 pg (27.0-33.0); MEAN CORPUSCULAR HGB CONC 32.3 g/dl (32.0-36.5); MEAN CORPUSCULAR VOLUME 88.9 fl (80.0-96.0); MONO # 0.4 10^3/uL (0.0-0.8); MONO % 4.7 % (2.0-8.0); NEUTROPHILS # 4.3 10^3/uL (1.5-8.5); NEUTROPHILS % 52.5 % (36.0-66.0); PLATELET COUNT, AUTOMATED 380 10^3/uL (150-450); RED BLOOD COUNT 4.07 10^6/uL (4.00-5.40); WHITE BLOOD COUNT 8.3 10^3/uL (4.0-10.0)
[2024-06-19 22:35] LABS: LIPASE 23 U/L (12-53)
[2024-06-19 22:39] LABS: ALBUMIN 3.9 G/DL (3.2-5.2); ALKALINE PHOSPHATASE 92 U/L (46-116); ALT/SGPT 20 U/L (7.0-40); AST/SGOT 18 U/L (<34); BILIRUBIN,DIRECT < 0.1 MG/DL (<0.4); BILIRUBIN,TOTAL 0.3 MG/DL (0.3-1.2); BLOOD UREA NITROGEN 15 MG/DL (9-23); CALCIUM LEVEL 9.7 MG/DL (8.5-10.1); CARBON DIOXIDE LEVEL 30 MMOL/L (20-31); CHLORIDE LEVEL 107 MMOL/L (98-107); CREATININE FOR GFR 0.96 MG/DL (0.55-1.30); GLOMERULAR FILTRATION RATE > 60.0 (>60); GLUCOSE, FASTING 82 MG/DL (60-100); POTASSIUM SERUM 4.3 MMOL/L (3.5-5.1); SODIUM LEVEL 142 MMOL/L (136-145)
[2024-06-19 22:52] LABS: HCG, SERUM QUALITATIVE NEGATIVE (NEGATIVE)
[2024-06-19] MEDS: NS 1,000 ML IV ONE (23:00)
[2024-06-19] MEDS ORDERED: ISOVUE-370 76% 100ML VIAL As Ordered ONE (23:01)
[2024-06-19] MEDS: MORPHINE 4 MG/ML 1ML VIAL IV ONE (23:01)
[2024-06-19] MEDS: ONDANSETRON 4MG 2ML VIAL IV ONE (23:01)
[2024-06-20] MEDS: NS 1,000 ML IV SCH (01:53)
[2024-06-20] MEDS: MORPHINE 4 MG/ML 1ML VIAL IV PRN (01:53)
[2024-06-20] MEDS: KETOROLAC 30 MG/ML 1ML VIAL IV ONE (08:23)
[2024-06-20 08:57] LABS: ALBUMIN 2.6 G/DL (3.2-5.2); BILIRUBIN,DIRECT 0.1 MG/DL (<0.4); BILIRUBIN,TOTAL 0.3 MG/DL (0.3-1.2); TOTAL PROTEIN 4.9 G/DL (5.7-8.2)
[2024-06-20] MEDS ORDERED: PANTOPRAZOLE 40MG TAB (PROTONIX) PO SCH (09:00)
[2024-06-20] MEDS ORDERED: ENOXAPARIN 40MG/0.4ML SYRINGE (J1650 PER 10MG) SC SCH (09:00)
[2024-06-20 09:07] LABS: BASO % 0.4 % (0.0-1.0); EOS % 0.4 % (0.0-3.0); HEMATOCRIT 32.4 % (36.0-47.0); HEMOGLOBIN 10.3 g/dl (12.0-15.5); LYMPH # 1.7 10^3/uL (1.5-5.0); LYMPH % 30.4 % (24.0-44.0); MEAN CORPUSCULAR HEMOGLOBIN 28.9 pg (27.0-33.0); MEAN CORPUSCULAR HGB CONC 31.8 g/dl (32.0-36.5); MEAN CORPUSCULAR VOLUME 90.8 fl (80.0-96.0); MONO # 0.3 10^3/uL (0.0-0.8); NEUTROPHILS # 3.4 10^3/uL (1.5-8.5); NEUTROPHILS % 62.1 % (36.0-66.0); PLATELET COUNT, AUTOMATED 283 10^3/uL (150-450); RED BLOOD COUNT 3.57 10^6/uL (4.00-5.40); WHITE BLOOD COUNT 5.5 10^3/uL (4.0-10.0)
[2024-06-20] MEDS: MORPHINE 4 MG/ML 1ML VIAL IV ONE (11:14)
[2024-06-20] MEDS: ceFAZolin SOD 2 GM in IV 1 EA IV ONE (11:25)
[2024-06-20] MEDS: INDOCYANINE GREEN 25MG VIAL (IC-GREEN) IV ONE (11:25)
[2024-06-20] MEDS ORDERED: PREN1CHW4 PO (12:07)
[2024-06-20] MEDS ORDERED: HOME MED LIST COMPLETE! XX SCH (12:10)
[2024-06-20] MEDS: oxyCODONE 5MG TAB PO PRN (13:38)
[2024-06-20] MEDS: ceFAZolin 2 GM/D5W 50 ML IV BAG As Ordered ONE (16:04)
[2024-06-20] MEDS ORDERED: ONDANSETRON 4MG 2ML VIAL As Ordered ONE (16:13)
[2024-06-20] MEDS ORDERED: SUGAMMADEX SODIUM 500 MG/5 ML VIAL (BRIDION) As Ordered ONE (16:13)
[2024-06-20] MEDS ORDERED: propofoL 200 MG/20 ML VIAL As Ordered ONE (16:13)
[2024-06-20] MEDS ORDERED: MIDAZOLAM INJ 2MG/2ML VIAL As Ordered ONE (16:13)
[2024-06-20] MEDS ORDERED: INDOCYANINE GREEN 25MG VIAL (IC-GREEN) As Ordered ONE (16:13)
[2024-06-20] MEDS ORDERED: ROCURONIUM BROMIDE 50MG/5ML VIAL As Ordered ONE (16:13)
[2024-06-20] MEDS ORDERED: ACETAMINOPHEN 1000MG 100ML IV BAG As Ordered ONE (16:13)
[2024-06-20] MEDS ORDERED: LIDOCAINE 2% 100MG/5ML SDV (FOR ANES.) As Ordered ONE (16:13)
[2024-06-20] MEDS ORDERED: fentaNYL 100 MCG/2 ML INJECTION As Ordered ONE (16:13)
[2024-06-20] MEDS ORDERED: dexmedeTOMIDine (4MCG/ML)200MCG/50ML BTL (PRECEDEX) As Ordered ONE (16:31)
[2024-06-20] MEDS ORDERED: HYDROmorphone HCL 2MG/ML 1ML VIAL As Ordered ONE (16:33)
[2024-06-20] MEDS ORDERED: MEPERIDINE 25 MG/ML 1ML VIAL IV PRN (17:10)
[2024-06-20] MEDS ORDERED: diphenhydrAMINE 50MG/ML VIAL IV PRN (17:10)
[2024-06-20] MEDS ORDERED: fentaNYL 100 MCG/2 ML INJECTION IV PRN (17:10)
[2024-06-20] MEDS: LR 1,000 ML IV SCH (17:10)
[2024-06-20] MEDS ORDERED: HYDROMORPHONE HCL 0.5 MG/ 0.5 ML SYRINGE IV PRN (17:10)
[2024-06-20] MEDS ORDERED: METOCLOPRAMIDE INJ 10MG/2ML VIAL IV PRN (17:10)
[2024-06-20] MEDS ORDERED: ONDANSETRON 4MG 2ML VIAL IV PRN (17:10)
[2024-06-20] MEDS ORDERED: oxyCODONE 5MG TAB PO PRN (17:10)
[2024-06-20 18:45] VITALS: BP 125/95; TEMP 98.1; O2SAT 94
[2024-06-20] MEDS: KCL 20MEQ IN D5/0.45NS 1000ML 1,000 ML IV SCH (18:49)
[2024-06-20 19:15] VITALS: BP 135/84; TEMP 97.9; O2SAT 93
[2024-06-20 20:12] VITALS: BP 123/78; TEMP 98.6; O2SAT 93
[2024-06-20] MEDS: ENOXAPARIN 40MG/0.4ML SYRINGE (J1650 PER 10MG) SC SCH (21:00)
[2024-06-20] MEDS: PANTOPRAZOLE 40MG TAB (PROTONIX) PO SCH (21:00)
[2024-06-20] MEDS: ONDANSETRON 4MG 2ML VIAL IV PRN (21:03)
[2024-06-20 21:07] VITALS: BP 127/72; TEMP 97.9; O2SAT 94
[2024-06-20 22:15] VITALS: BP 121/74; TEMP 98.1; O2SAT 94
[2024-06-20 23:15] VITALS: BP 124/71; TEMP 98; O2SAT 92
[2024-06-21 04:00] VITALS: BP 111/67; TEMP 98; O2SAT 94
[2024-06-21] MEDS: oxyCODONE 5MG TAB PO PRN (04:16)
[2024-06-21 06:24] LABS: HEMOGLOBIN 11.1 g/dl (12.0-15.5); MEAN CORPUSCULAR HEMOGLOBIN 28.6 pg (27.0-33.0); MEAN CORPUSCULAR HGB CONC 32.6 g/dl (32.0-36.5); MEAN CORPUSCULAR VOLUME 87.6 fl (80.0-96.0); PLATELET COUNT, AUTOMATED 340 10^3/uL (150-450); RED BLOOD COUNT 3.88 10^6/uL (4.00-5.40); WHITE BLOOD COUNT 6.9 10^3/uL (4.0-10.0)
[2024-06-21 06:53] LABS: LIPASE 27 U/L (12-53)
[2024-06-21 06:58] LABS: ALBUMIN 2.8 G/DL (3.2-5.2); ALKALINE PHOSPHATASE 83 U/L (46-116); ALT/SGPT 45 U/L (7.0-40); AST/SGOT 35 U/L (<34); BILIRUBIN,TOTAL 0.4 MG/DL (0.3-1.2); BLOOD UREA NITROGEN 7 MG/DL (9-23); CALCIUM LEVEL 8.5 MG/DL (8.5-10.1); CARBON DIOXIDE LEVEL 26 MMOL/L (20-31); CHLORIDE LEVEL 109 MMOL/L (98-107); CREATININE FOR GFR 0.81 MG/DL (0.55-1.30); GLOMERULAR FILTRATION RATE > 60.0 (>60); GLUCOSE, FASTING 108 MG/DL (60-100); POTASSIUM SERUM 4.2 MMOL/L (3.5-5.1); SODIUM LEVEL 139 MMOL/L (136-145); TOTAL PROTEIN 5.5 G/DL (5.7-8.2)
[2024-06-21] MEDS: MORPHINE 4 MG/ML 1ML VIAL IV PRN (07:58)
[2024-06-21 08:00] VITALS: BP 106/69; TEMP 97.7; O2SAT 95
[2024-06-21 12:00] VITALS: BP 121/73; TEMP 98.2; O2SAT 97
[2024-06-21] MEDS ORDERED: HYDR-3713 PO (13:22)
== END 2024-06-21 14:20 | disposition home or self-care (01) | DRG 419 ==
LOC: M ED 21:05 → M ED INP 06-20 11:23 → M MS5PR 06-20 18:15
PROVIDERS: ADMIT Surgery; ATTEND Surgery
PROC: 8E0W4CZ Robotic Assisted Procedure of Trunk Region, Percutaneous Endoscopic Approach (ICD-10-PCS; 2024-06-20)
PROC: 0FT44ZZ Resection of Gallbladder, Percutaneous Endoscopic Approach (ICD-10-PCS; principal; 2024-06-20 16:00)
DX: K80.20 Calculus of gallbladder without cholecystitis without obstruction (principal); Z88.1 Allergy status to other antibiotic agents; Z79.899 Other long term (current) drug therapy

== ENCOUNTER 2024-06-27 14:34 | Inpatient (IN) | payer OTHER ==
[~2024-06-27] VITALS: Ht 165.1 cm; Wt 82.7 kg
[~2024-06-27 14:34] MED LIST changes: +HYDR-3713 PO; +PREN1CHW4 PO
[2024-06-27] MEDS: NS 1,000 ML IV SCH (15:13)
[2024-06-27] MEDS: MORPHINE 4 MG/ML 1ML VIAL IV PRN (15:13)
[2024-06-27] MEDS: METOCLOPRAMIDE INJ 10MG/2ML VIAL IV ONE (15:13)
[2024-06-27 15:21] LABS: BASO % 0.4 % (0.0-1.0); EOS % 0.3 % (0.0-3.0); HEMOGLOBIN 11.5 g/dl (12.0-15.5); LYMPH # 1.4 10^3/uL (1.5-5.0); LYMPH % 12.1 % (24.0-44.0); MEAN CORPUSCULAR HEMOGLOBIN 28.5 pg (27.0-33.0); MEAN CORPUSCULAR HGB CONC 31.9 g/dl (32.0-36.5); MEAN CORPUSCULAR VOLUME 89.3 fl (80.0-96.0); MONO # 0.6 10^3/uL (0.0-0.8); MONO % 5.6 % (2.0-8.0); NEUTROPHILS # 9.2 10^3/uL (1.5-8.5); NEUTROPHILS % 81.2 % (36.0-66.0); PLATELET COUNT, AUTOMATED 356 10^3/uL (150-450); RED BLOOD COUNT 4.03 10^6/uL (4.00-5.40); WHITE BLOOD COUNT 11.3 10^3/uL (4.0-10.0)
[2024-06-27 15:41] LABS: LIPASE 25 U/L (12-53)
[2024-06-27 15:42] LABS: ALBUMIN 3.8 G/DL (3.2-5.2); ALKALINE PHOSPHATASE 234 U/L (46-116); ALT/SGPT 121 U/L (7.0-40); AST/SGOT 319 U/L (<34); BILIRUBIN,TOTAL 1.6 MG/DL (0.3-1.2); BLOOD UREA NITROGEN 15 MG/DL (9-23); CALCIUM LEVEL 9.4 MG/DL (8.5-10.1); CARBON DIOXIDE LEVEL 28 MMOL/L (20-31); CHLORIDE LEVEL 106 MMOL/L (98-107); CK-MB VALUE MASS < 1.0 NG/ML (<3.6); CPK CREATINE PHOSPHOKINASE 39 U/L (34-145); CREATININE FOR GFR 0.83 MG/DL (0.55-1.30); GLOMERULAR FILTRATION RATE > 60.0 (>60); GLUCOSE, FASTING 126 MG/DL (60-100); MB/CK RELATIVE INDEX 2.56 (< OR =4); POTASSIUM SERUM 3.9 MMOL/L (3.5-5.1); SODIUM LEVEL 139 MMOL/L (136-145); TOTAL PROTEIN 6.7 G/DL (5.7-8.2)
[2024-06-27 15:43] LABS: HCG, SERUM QUALITATIVE NEGATIVE (NEGATIVE)
[2024-06-27 15:44] LABS: THYROID STIMULATING HORMONE 1.342 uIU/ML (0.55-4.78)
[2024-06-27] MEDS ORDERED: ISOVUE-370 76% 100ML VIAL As Ordered ONE (17:04)
[2024-06-27] MEDS: HYDROMORPHONE HCL 0.5 MG/ 0.5 ML SYRINGE IV PRN (18:03)
[2024-06-27] MEDS ORDERED: EXCETAB32 PO (19:58)
[2024-06-27] MEDS ORDERED: HYDR-3713 PO (19:58)
[2024-06-27] MEDS ORDERED: HOME MED LIST COMPLETE! XX SCH (20:00)
[2024-06-27] MEDS: PIPERACILLIN/TAZOBACTAM SOD 4.5 GM in D5W MINI-BAG PLUS 50 ML IV ONE (20:59)
[2024-06-27] MEDS ORDERED: PIPERACILLIN/TAZOBACTAM SOD 3.375 GM in D5W MINI-BAG PLUS 50 ML IV SCH (23:40)
[2024-06-28] MEDS: ONDANSETRON 4MG 2ML VIAL IV PRN (00:16)
[2024-06-28] MEDS: HYDROMORPHONE HCL 0.5 MG/ 0.5 ML SYRINGE IV PRN ×2 (00:17→08:09)
[2024-06-28 00:25] LABS: RSV AMPLIFICATION NEGATIVE (NEGATIVE)
[2024-06-28 02:03] LABS: INR 1.18; PARTIAL THROMBOPLASTIN TIME 30.8 SECONDS (24.8-34.2); PROTHROMBIN TIME 14.7 SECONDS (12.5-14.5)
[2024-06-28 02:15] LABS: C REACTIVE PROTEIN QUANTITATIV 1.9 MG/DL (<1.0)
[2024-06-28 03:32] LABS: PROCALCITONIN 0.26 ng/ml
[2024-06-28 06:32] LABS: HEMATOCRIT 32.8 % (36.0-47.0); HEMOGLOBIN 10.6 g/dl (12.0-15.5); MEAN CORPUSCULAR HGB CONC 32.3 g/dl (32.0-36.5); MEAN CORPUSCULAR VOLUME 89.9 fl (80.0-96.0); PLATELET COUNT, AUTOMATED 275 10^3/uL (150-450); RED BLOOD COUNT 3.65 10^6/uL (4.00-5.40)
[2024-06-28 06:56] LABS: LIPASE 27 U/L (12-53)
[2024-06-28 06:57] LABS: AMYLASE 49 U/L (30-118)
[2024-06-28 06:59] LABS: ALBUMIN 3.1 G/DL (3.2-5.2); ALKALINE PHOSPHATASE 214 U/L (46-116); ALT/SGPT 242 U/L (7.0-40); AST/SGOT 244 U/L (<34); BILIRUBIN,DIRECT 0.2 MG/DL (<0.4); BILIRUBIN,TOTAL 0.6 MG/DL (0.3-1.2); BLOOD UREA NITROGEN 10 MG/DL (9-23); CALCIUM LEVEL 9.2 MG/DL (8.5-10.1); CARBON DIOXIDE LEVEL 28 MMOL/L (20-31); CHLORIDE LEVEL 110 MMOL/L (98-107); CREATININE FOR GFR 0.83 MG/DL (0.55-1.30); GLOMERULAR FILTRATION RATE > 60.0 (>60); GLUCOSE, FASTING 84 MG/DL (60-100); POTASSIUM SERUM 4.1 MMOL/L (3.5-5.1); SODIUM LEVEL 142 MMOL/L (136-145); TOTAL PROTEIN 5.7 G/DL (5.7-8.2)
[2024-06-28] MEDS: D5W/LR 1,000 ML IV SCH (08:35)
[2024-06-28] MEDS: PANTOPRAZOLE 40MG VIAL IV SCH (14:40)
[2024-06-28 21:37] VITALS: BP 139/67; TEMP 97; O2SAT 97
[2024-06-28 22:00] VITALS: O2SAT 97
[2024-06-29 02:00] VITALS: BP 130/59; TEMP 97.3; O2SAT 95
[2024-06-29 05:00] VITALS: BP 111/52; TEMP 97.4; O2SAT 96
[2024-06-29 07:16] LABS: BASO % 0.6 % (0.0-1.0); EOS # 0.1 10^3/uL (0.0-0.5); EOS % 1.5 % (0.0-3.0); HEMATOCRIT 33.9 % (36.0-47.0); HEMOGLOBIN 10.7 g/dl (12.0-15.5); LYMPH # 2.7 10^3/uL (1.5-5.0); LYMPH % 49.8 % (24.0-44.0); MEAN CORPUSCULAR HEMOGLOBIN 28.2 pg (27.0-33.0); MEAN CORPUSCULAR HGB CONC 31.6 g/dl (32.0-36.5); MEAN CORPUSCULAR VOLUME 89.4 fl (80.0-96.0); MONO # 0.3 10^3/uL (0.0-0.8); MONO % 5.8 % (2.0-8.0); NEUTROPHILS # 2.2 10^3/uL (1.5-8.5); NEUTROPHILS % 41.9 % (36.0-66.0); PLATELET COUNT, AUTOMATED 277 10^3/uL (150-450); RED BLOOD COUNT 3.79 10^6/uL (4.00-5.40); WHITE BLOOD COUNT 5.3 10^3/uL (4.0-10.0)
[2024-06-29 07:34] LABS: ALBUMIN 2.9 G/DL (3.2-5.2); ALKALINE PHOSPHATASE 169 U/L (46-116); ALT/SGPT 145 U/L (7.0-40); AST/SGOT 72 U/L (<34); BILIRUBIN,TOTAL 0.5 MG/DL (0.3-1.2); BLOOD UREA NITROGEN 7 MG/DL (9-23); CALCIUM LEVEL 9.2 MG/DL (8.5-10.1); CARBON DIOXIDE LEVEL 28 MMOL/L (20-31); CHLORIDE LEVEL 110 MMOL/L (98-107); GLOMERULAR FILTRATION RATE > 60.0 (>60); GLUCOSE, FASTING 89 MG/DL (60-100); POTASSIUM SERUM 3.8 MMOL/L (3.5-5.1); SODIUM LEVEL 142 MMOL/L (136-145); TOTAL PROTEIN 5.4 G/DL (5.7-8.2)
[2024-06-29 08:00] VITALS: BP 131/69; TEMP 98.1; O2SAT 97
[2024-06-29 12:00] VITALS: BP 108/69; TEMP 97.4; O2SAT 96
[2024-06-29] MEDS ORDERED: PANT40TA29 PO (14:09)
== END 2024-06-29 16:15 | disposition home or self-care (01) | DRG 948 ==
LOC: M ED 14:34 → M ED INP 23:40 → M PED 06-28 21:44
PROVIDERS: ADMIT Internal Medicine; ATTEND Student in an Organized Health Care Education/Training Program
DX: G89.18 Other acute postprocedural pain (principal); F41.9 Anxiety disorder, unspecified; R11.2 Nausea with vomiting, unspecified; R19.7 Diarrhea, unspecified; R10.9 Unspecified abdominal pain; K83.8 Other specified diseases of biliary tract; K76.0 Fatty (change of) liver, not elsewhere classified; Z98.890 Other specified postprocedural states; Z90.49 Acquired absence of other specified parts of digestive tract; Z88.1 Allergy status to other antibiotic agents